=== PATIENT | female | born 1995 | race Hispanic/Latino ===

== ENCOUNTER 2018-11-27 03:19 | Observation (INO) | payer BC ==
[2018-11-27] MEDS ORDERED: Ketorolac Tromethamine 30 MG/ML VIAL ONE ×2 (03:41→12:44)
[2018-11-27] MEDS ORDERED: Ondansetron PF 4 MG/2 ML Vial ONE ×2 (03:41→10:29)
[2018-11-27 03:59] LABS: #Basophils 0.1 thou/uL (0.0-0.2); #Eosinphils 0.1 thou/uL (0.0-0.7); #Lymphocytes 1.6 thou/uL (1.20-3.40); #Monocytes 0.5 thou/uL (0.11-0.59); %Basophils 0.8 % (0.0-1.0); %Lymphocytes 17.3 % (21.0-51.0); %Monocytes 5.5 % (0.0-10.0); %Neutrophils 75.4 % (42.0-75.0); Hemoglobin 14.8 g/dL (12.0-16.0); Mean Corpuscular Hemoglobin 30.5 pg (27.0-31.0); Mean Corpuscular Volume 87.3 fL (78.0-98.0); Mean Platelet Volume 6.6 fL (7.4-10.4); Platelet Count 289 thou/uL (130-400); RBC Distribution Width 11.5 % (11.5-14.5); Red Blood Cell (RBC) Count 4.85 mill/uL (4.20-5.40); White Blood Cell (WBC) Count 9.3 thou/uL (4.8-10.8)
[2018-11-27 04:03] LABS: Bilirubin Negative (Negative); Blood, Urine Negative (Negative); Clarity Slightly Cloudy (Clear); Glucose, Urine (Dipstick) Negative (Negative); Leukocyte Negative (Negative); Nitrite Negative (Negative); Protein, Urine (Dipstick) Negative (Neg-Trace); Urobilinogen 0.2 mg/dL (Less than 2)
[2018-11-27 04:04] LABS: BHCG - Serum Negative (NEGATIVE); Pregs Control Background? CLEAR/WHITE (CLR/WHITE); Pregs Control Bar Appear? YES (CONTROL BAR)
[2018-11-27 04:12] LABS: ALT (SGPT) 12 U/L (8-55); AST (SGOT) 13 U/L (5-34); Albumin 4.2 g/dL (3.5-5.0); Alkaline Phosphatase 103 U/L (40-110); Anion Gap 14 mmol/L (10-20); BUN (Urea Nitrogen) 12 mg/dL (7.0-18.7); Bilirubin, Total 0.4 mg/dL (0.2-1.2); Calc. Creatinine Clearance 0 mL/min (70-130); Calcium 10.3 mg/dL (7.8-10.44); Carbon Dioxide 24 mmol/L (22-29); Chloride 108 mmol/L (98-107); Estimated GFR-MDRD Greater than 90; Globulin 3.2 g/dL (2.4-3.5); Glucose 91 mg/dL (70-105); Lipase 12 U/L (8-78); Potassium 4.2 mmol/L (3.5-5.1); Protein, Total 7.4 g/dL (6.0-8.3); Sodium 142 mmol/L (136-145)
[2018-11-27] MEDS ORDERED: Morphine 4 MG/ML VIAL ONE (04:50)
[2018-11-27] MEDS ORDERED: Levofloxacin 500 mg/D5W 100 ml Premix Bag ONE (05:00)
[2018-11-27] MEDS ORDERED: Ketorolac Tromethamine 30 MG/ML VIAL IVP PRN (06:27)
[2018-11-27] MEDS ORDERED: Morphine 4 MG/ML VIAL IV PRN (06:28)
[2018-11-27] MEDS ORDERED: Morphine 2 MG/ML SYRINGE SLOW IVP PRN (06:28)
[2018-11-27] MEDS ORDERED: Ondansetron PF 4 MG/2 ML Vial IVP PRN (06:29)
--- NOTE | 2018-11-27 07:24 | ULT ---
RIGHT UPPER QUADRANT ULTRASOUND: INDICATIONS: Right upper quadrant pain and history of gallstones. COMPARISON: None. FINDINGS: There are multiple gallstones within the gallbladder. The gallbladder is mildly distended. No apparen t gallbladder wall thickening or pericholecystic fluid is evident. There is a gallstone present withi n the gallbladder neck. There is dilatation of the common bile duct to 7.6 mm. There is mild intrahep atic biliary ductal dilatation. There is a report of a sonographic Ward sign. The right kidney measures 10.2 x 3.9 x 5.0 cm. No focal hepatic lesion is evident. The visualized asp ects of the pancreas are unremarkable appearing. No free fluid is evident. IMPRESSION: Cholelithiasis with mild gallbladder distention and a positive sonographic Ward sign, suspicious fo r acute calculus cholecystitis. There is dilatation of the common bile duct, suspicious for a distal obstructing process such as choledocholithiasis. Recommend surgical referral. POS: SONAL
[2018-11-27] MEDS: D5 1/2 NS w/20 mEq KCL 1,000 ML IV SCH ×2 (08:27→12:54)
[2018-11-27 08:33] VITALS: BMI 25.2
[2018-11-27] MEDS ORDERED: PROPOFOL 200 MG/20 ML VIAL ONE (10:29)
[2018-11-27] MEDS ORDERED: Dexamethasone 20 MG/5 ML VIAL ONE (10:29)
[2018-11-27] MEDS ORDERED: Glycopyrrolate 0.2 MG/ML 5 ML SYRINGE ONE (10:29)
[2018-11-27] MEDS ORDERED: Lidocaine 1% PF 5 ML VIAL ONE (10:29)
[2018-11-27] MEDS ORDERED: Rocuronium Bromide 10 MG/ML (10ML VIAL) ONE (10:29)
[2018-11-27] MEDS ORDERED: Acetaminophen 1,000 MG in Premix Bag 1 BAG IVPB SCH (12:30)
[2018-11-27] MEDS ORDERED: Ketorolac Tromethamine 30 MG/ML VIAL IVP SCH (12:30)
--- NOTE | 2018-11-27 12:49 | HP ---
HISTORY OF PRESENT ILLNESS: Betty Benoit is a 23-year-old female for the past year has been having intermittent right upper quadrant pain, back radiation, as her second emergency room visit revealing gallstones with normal bile duct caliber and normal liver function test. Negative test. She is 3, para 3. Plan is for laparoscopic cholecystectomy. ALLERGIES: NONE. SOCIAL HISTORY: Tobacco, none. Alcohol, none. MEDICATIONS: None routinely. PAST SURGICAL HISTORY: She had some sort of obstetric procedure for postdelivery bleeding, that was not a hysterectomy. She does not recover what exactly was done. PAST MEDICAL HISTORY: Noncontributory. PHYSICAL EXAMINATION: VITAL SIGNS: Height 4 feet and 11 inches, weight 125 pounds, and 25 BMI. Temperature 98.9 degrees, pulse 72, and blood pressure 103/65. LUNGS: Clear to auscultation. CARDIAC: Regular rate and rhythm without murmur or gallop. ABDOMEN: Soft. Tenderness in right lower quadrant and guarding. EXTREMITIES: Unremarkable. No ankle edema. LYMPHATICS: No lymphadenopathy in neck, axilla, or groins. LABORATORY DATA: White count 9 and hemoglobin 14. Comprehensive metabolic profile is normal. Urinalysis normal this morning. Serum test negative. ASSESSMENT AND PLAN: Cholecystitis, cholelithiasis. Recommend laparoscopic video cholecystectomy. Risks of infection, bleeding, visceral and biliary injury discussed. Questions answered. Plan discharge home postoperatively. Job ID: [id number]
[2018-11-27] MEDS ORDERED: Bupivacaine HCl 0.5%/Epinephrine 1:200,000/PF 30 ml Vial ONE (12:50)
[2018-11-27] MEDS ORDERED: Midazolam HCl 2 mg/2 ml Vial ONE (12:51)
[2018-11-27] MEDS ORDERED: Fentanyl 100 MCG/2 ML VIAL ONE (12:51)
[2018-11-27] MEDS ORDERED: Promethazine HCl 25 MG/ML VIAL ONE (12:51)
[2018-11-27] MEDS ORDERED: traMADol HCl 50 MG TAB PO PRN ×2 (13:51)
[2018-11-27] MEDS ORDERED: PACU-Morphine 4MG/ML VIAL SLOW IVP PRN (14:04)
[2018-11-27] MEDS ORDERED: Ondansetron HCl/PF 4 MG/2 ML Vial IVP PRN (14:04)
[2018-11-27] MEDS ORDERED: Promethazine HCl 25 MG/ML VIAL SLOW IVP PRN (14:04)
[2018-11-27] MEDS ORDERED: HYDROmorphone 2 MG/ML VIAL SLOW IVP PRN (14:04)
[2018-11-27] MEDS ORDERED: Promethazine HCl 25 MG/ML VIAL IM PRN (14:04)
--- NOTE | 2018-11-27 14:41 | OP ---
DATE OF PROCEDURE: 11/27/2018 PREOPERATIVE DIAGNOSES: Acute and chronic cholecystitis, cholelithiasis, hydrops of the gallbladder. POSTOPERATIVE DIAGNOSES: Acute and chronic cholecystitis, cholelithiasis, hydrops of the gallbladder, and biliary obstruction. ANESTHESIA: General, local 0.5% Marcaine with epinephrine 30 mL. PROCEDURE PERFORMED: Laparoscopic video cholecystectomy. DESCRIPTION OF PROCEDURE: The patient was taken to the operating room, where under general anesthesia, abdomen was prepared with ChloraPrep and draped in routine fashion. 0.5% Marcaine with epinephrine was infiltrated in the skin and subcutaneous tissue about each port site. An infraumbilical incision was made. Pneumoperitoneum to 15 mmHg was obtained with a Veress needle, replaced with a 5 port and via the laparoscope inserted. Right subxiphoid incision was made and 11 port placed. Right subcostal incision was made at midclavicular and anterior axillary lines. The 5 port was placed. Liver appeared to be normal. Gallbladder was obstructed and inflamed, thickened wall. Fundus grasped at the cephalad. Infundibulum was identified and reflected laterally. Cystic artery and duct dissected free. Critical view obtained. Cystic artery and duct double clipped proximally, divided, and gallbladder dissected free from the liver bed obtaining good hemostasis prior to division of the final peritoneal attachments. Gallbladder and contents removed, submitted to pathology. Good hemostasis ensured. Irrigant and pneumoperitoneum evacuated. All instruments were removed, and all skin incisions were approximated with interrupted subdermal 4-0 Monocryl and [place] glue applied. Job ID: [id number]
--- NOTE | 2018-11-27 18:48 | DIS ---
DATE OF ADMISSION: 11/27/2018 DATE OF DISCHARGE: 11/27/2018 HOSPITAL COURSE: A 23-year-old female, 3, para 3, 1-year history of intermittent abdominal pain, presents to the emergency room with normal liver function test, gallstones, normal bile duct caliber, hospitalized overnight, given intravenous antibiotics, taken to the operating room for laparoscopic cholecystectomy. Postoperatively, discharged home. Diet as tolerated. Activity as tolerated. Tylenol and Advil as necessary, Ultram #21 given as needed. Follow up in my office in 2 to 3 weeks. Job ID: [id number]
[2018-11-27] MEDS: Ibuprofen 600 MG TAB PO PRN (18:50)
[2018-11-27] MEDS: Acetaminophen 500 MG TAB PO PRN (23:56)
[2018-11-28 07:38] VITALS: BP 116/70; TEMP 97.9
[2018-11-28] MEDS: Ibuprofen 600 MG TAB PO PRN (09:55)
[2018-11-28] MEDS: Acetaminophen 500 MG TAB PO PRN (09:55)
== END 2018-11-28 11:16 | disposition home or self-care (01) ==
LOC: SCSER 03:19 → SURG B 05:00 → SCSER 05:58
PROVIDERS: ADMIT Specialist; ATTEND Specialist
PROC: 0FT44ZZ Resection of Gallbladder, Percutaneous Endoscopic Approach (ICD-10-PCS; principal; 2018-11-27)
DX: K80.13 Calculus of gallbladder with acute and chronic cholecystitis with obstruction (principal); K82.1 Hydrops of gallbladder
CPT/HCPCS: 76705; 80053; 81003; 83690; 84703; 85025; 88304; 96361; 96374; 96375; 96376; G0378; J0131; J0670; J1100; J1885; J1956; J2001; J2250; J2270; J2405; J2550; J2704; J3010

== ENCOUNTER 2024-02-18 10:09 | Outpatient (CLI) | payer OTHER | END 2024-02-18 10:10 | disposition home or self-care (01) | LOC: CT 10:09 | PROVIDERS: ATTEND Nurse Practitioner Family | DX: R10.84 Generalized abdominal pain (principal) | CPT/HCPCS: 74160 ==